=== PATIENT | female | born 1990 ===

== ENCOUNTER 2016-07-22 16:46 | Emergency (ER) | payer OTHER ==
[2016-07-22] MEDS ORDERED: IOPAMIDOL 370 (76%) 100 ML VIAL IV ONE (16:47)
[2016-07-22 18:09] LABS: URINE BILIRUBIN NEGATIVE (NEGATIVE); URINE BLOOD NEGATIVE (NEGATIVE); URINE GLUCOSE (UA) NEGATIVE (NEGATIVE); URINE LEUKOCYTE ESTERASE NEGATIVE (NEGATIVE); URINE NITRITE NEGATIVE (NEGATIVE); URINE PROTEIN NEGATIVE (NEGATIVE); URINE UROBILINOGEN NORMAL (0-1 mg/dl)
[2016-07-22 18:11] LABS: URINE APPEARANCE CLEAR; URINE COLOR DARK YELLOW
[2016-07-22 18:14] LABS: HCG,QUALITATIVE URINE NEGATIVE
[2016-07-22] MEDS ORDERED: LACTATED RINGERS 1,000 ML ONE (19:16)
[2016-07-22] MEDS ORDERED: MORPHINE SULFATE 2 MG/ML SYRINGE ONE (19:16)
[2016-07-22 19:18] LABS: ABSOLUTE NEUTROPHIL COUNT 3.5 K/mm3 (1.8-7.7); BASO % 0.5 % (0.2-1.0); HEMOGLOBIN 12.7 gm/l (12.0-16.0); IMM NEUT% 0.2 % (0-1); LYMPH # 0.5 (1.0-4.8); LYMPH % 10.9 % (15-45); MEAN CELL VOLUME 98.9 fl (81.0-99.0); MEAN CORPUSCULAR HGB CONC 34.3 g/dl (33.0-37.0); MEAN PLATELET VOLUME 9.2 fl (7.4-10.4); MONO # 0.3 (0.0-0.8); MONO % 6.3 % (4-12); NEUT % 82.1 % (43-75); PLATELET COUNT 178 K/mm3 (130-400); RED CELL DISTRIBUTION WIDTH 12.4 % (11.5-14.5)
[2016-07-22] MEDS ORDERED: PROCHLORPERAZINE 5 MG/ML 2 ML VIAL ONE (19:30)
[2016-07-22 19:35] LABS: ALB/GLOB RATIO 1.3 (>1.0); ALBUMIN 3.9 gm/dL (3.5-5.7); CALCIUM 8.5 mg/dL (8.6-10.3); MAGNESIUM 2.2 mg/dL (1.9-2.7)
--- NOTE | 2016-07-22 19:54 | CT ---
Name: SINAN FORD Exam: CT abdomen pelvis with contrast Comparison: 08/28/2010 History: Nausea and vomiting Procedure: Helical CT using multidetector technique was applied to the abdomen and pelvis during intravenous administration of 100 cc Isovue-370. No oral contrast was given per ordering physician. An automated dose reduction technique was used to minimize patient radiation dose. Findings: CT abdomen (contrast enhanced): Lung bases are clear. Heart is not enlarged. There is no pericardial effusion. Liver, gallbladder, bile ducts, pancreas, spleen, adrenal glands, kidneys, aorta, IVC and portal vein are within normal limits. Stomach is somewhat distended with food. There is air and stool within a normal sized colon. There are a few air-fluid levels within normal caliber small bowel.. There is no free air free fluid or adenopathy. Regional skeleton is within normal limits. Is a tiny fat filled umbilical hernia. CT pelvis (contrast enhanced): Bladder is thick-walled but under distended. Normal size uterus is to the right. Left ovary is normal. The right ovary contains a involuting 1.8 cm cyst. There is mild free fluid in the right adnexa and in the cul-de-sac. The appendix is thought to be partially imaged and there is no pericecal stranding. Small bowel and colon are normal. There is no free air, abscess or suspicious adenopathy. Impression: 1. 1.8 cm involuting right ovarian cyst 2. The appendix is thought to be partially visualized and normal where seen. There is no pericecal stranding. 3. Mildly thick walled bladder which may be due to underdistention. Correlation with urinalysis is recommended. 4. Stomach is moderately distended with food 5. Tiny fat filled umbilical hernia Note: The above report was uploaded to [facility]'s electronic medical records system at 1950 hours.
--- NOTE | 2016-07-22 21:17 | US ---
Name: SINAN FORD Exam: Gallbladder Ultrasound Comparison: None Clinical History: Right upper quadrant pain with nausea and vomiting Findings: Ultrasound of the gallbladder was performed. Gallbladder is approximate 4.4 cm in length. Gallbladder wall is 2.4 mm thick. There is no sludge or stones and no pericholecystic fluid. Common bile duct is not identified on this exam however it is seen to be normal on CT performed earlier this evening. Impression: Normal ultrasound appearance of the gallbladder Note: The above report was uploaded to [facility]'s electronic medical records system at 2114 hours.
== END 2016-07-22 22:01 | disposition home or self-care (01) ==
LOC: ED 16:46
DX: R11.2 Nausea with vomiting, unspecified (principal); R10.9 Unspecified abdominal pain; Q90.9 Down syndrome, unspecified
CPT/HCPCS: 83690; 81025; 85025; 80053; 83735; 81003; 84484; 74177; 76705; 96375; 99284 ×2; 96374; 96361 ×2; 93005; J0780; J2270; J7120; Q9967